=== PATIENT | male | born 1950 | race Caucasian/White ===

== ENCOUNTER 2016-12-17 16:44 | Emergency (ER) | payer BC, MEDICARE ==
[~2016-12-17] VITALS: Ht 195.6 cm; Wt 118.2 kg
[~2016-12-17 16:44] MED LIST: ASPI-611 PO; LOVA40TA70 PO; MULT-795 PO; OXYB5TAB73 PO; [UNRECOGNIZED DRUG - CODE] PO
[2016-12-17 16:50] VITALS: TEMP 98.8; Ht 195.6 cm; Wt 118.2 kg
--- NOTE | 2016-12-17 16:51 | NUR ---
PO MEDS ASA 324 MG GIVEN CHARTED W/ PT TOLERANCE NO CHANGE.
--- NOTE | 2016-12-17 17:14 | NUR ---
SL MED NTG GIVEN CHARTED W/ SOME RELIEF OF CHEST PAIN W/ PT TOLERANCE.
[2016-12-17] MEDS ORDERED: NITROGLYCERIN 0.4 MG SUBLINGUAL TABLET SL PRN (17:15)
[2016-12-17] MEDS ORDERED: ASPIRIN 81 MG CHEWABLE TABLET PO ONE (17:15)
--- NOTE | 2016-12-17 17:20 | NUR ---
SL MED NTG X2ND DOSE W/ FULL RELIEF OF CHEST PAIN CHARTED W/ PT TOLERANCE.
--- NOTE | 2016-12-17 17:21 | ERPDOC ---
Departure Disposition Decision Date: Dec 17, 2016 Disposition Decision Time: 18:37 Disposition: 01 DISCHARGED HOME, SELF-CARE Impression Impression Impression: Primary Impression: Atypical chest pain Severity: Moderate Condition: Improved Seen By: Mid-level only Referrals: EVANGELINA ARREOLA MD (Family) Patient Instructions: Chest Pain (ED), Gastroesophageal Reflux Disease (ED) Problems/Meds/Labs Reviewed?: Yes Medications reviewed and manag: Yes Additional Instructions: You labs and EKG did not show any indication of a heart attack. You may take Pepcid AC or Zantac twice daily. Follow with your PCP in the next week for re-evaluation, sooner if worsting symptoms. Follow treatment plan. Follow up care ordered?: Yes Mental Status: Alert, Oriented HPI - Chest Pain General Stated Complaint: CHEST PAIN & TIGHTNESS,HAND NUMBNESS Time Seen by Provider: 17:08 Source: patient HPI - Chest Pain Initial Comments 66-year-old male presents to ER with intermittent left-sided anterior chest pain since Friday. Patient states that "when pain comes on" he can swallow several times and pain goes away however he still has some tightness. Pain is not associated with nausea, or diaphoresis. Patient denies fever, chills, cough \\cold symptoms, abdominal pain or SOA. Patient does admit he has quite a bit of gas and has been a bit constipated. Pain is not associated with any activity. Patient is currently having no chest pain at this time (pain resolved with 2 nitro). Patient currently sees no map drafter. States that he saw a map drafter in [place] number of years ago and they thought he might have a "small heart murmur ". Pain/Severity Scale: Now: 0/10, Worst: 5/10 Location: anterior L Quality: tightness Associated Symptoms: DENIES: abdominal pain, back pain, diaphoresis, dizziness , edema, fatigue, fever/chills, headache, nausea/vomiting, rash, shortness of breath Chest Pain Radiation: no radiation Nitro Today/Relief: 0.4 mg x 2, complete relief Aspirin Treatment Today: 81 mg x 4, provided by ED Allergies: Coded Allergies: No Known Allergies (Unverified , 03/09/12) Past History Past Medical History Metabolic: hypercholesterolemia, hypertension Cardiac: DENIES: angina Respiratory: DENIES: asthma GI: DENIES: ulcers Male: BPH Neurological: DENIES: seizures Musculoskeletal: DENIES: rheumatoid arthritis Psychological: DENIES: depression Surgical History Joint: foot Family History Family PMH: FOUND: SC, cancer Vaccines Hx Influenza Vaccination: No Hx Pneumococcal Vaccination: No Hx Tetanus Diptheria: No Social History Sexuality: female partner Review of Systems Constitutional Constitutional: DENIES: chills, dizziness, fever, weakness Eyes General: DENIES: erythema, exudate Lids/Accessories: DENIES: erythema, swelling ENMT Ears: DENIES: pain Hearing: DENIES: hearing loss Sinuses: DENIES: congestion, rhinorrhea Mouth/Throat: DENIES: sore throat Cardiovascular Cardiac: chest pain, see HPI, DENIES: dyspnea on exertion Pulmonary Respiratory: DENIES: cough, dyspnea GI Upper Abdomen: DENIES: nausea, pain, vomiting Lower Abdomen: DENIES: diarrhea, pain General: DENIES: dysuria, pain Musculoskeletal General: DENIES: pain, tenderness Integumentary Skin: DENIES: color change, itching, rash Neurological General: DENIES: ataxia, change in strength, numbness, paralysis/paresis, weakness Psychiatric Psychiatric: DENIES: anxiety, depression, nervousness Physical Exam General General Nourishment: well nourished, well developed, adult General Body Habitus: well groomed Vitals and Pain First Documented Vital Signs Date Time Temp Pulse Resp B/P Pulse Ox O2 Delivery O2 Flow Rate FiO2 12/17/16 16:50 98.8 63 20 169/101 96 Room Air Weight: Kilograms: Height (feet): Height (inches): Triage Pain Scale: Eyes (brief) Eyes Brief: found: EOMI, PERRL ENMT Ear/Canal/Mastiod: NOT FOUND: discharge Tympanic Membrane #1: Location: Right Tympanic Membrane: FOUND Normal, NOT FOUND Erythema, NOT FOUND Fluid, NOT FOUND Retracted Tympanic Membrane #2: Location: Left Tympanic Membrane: FOUND Retracted, NOT FOUND Bulging, NOT FOUND Erythema, NOT FOUND Fluid Nose: NOT FOUND: deformity Mouth/Dental/Tongue: FOUND: mucosa moist Pharynx: NOT FOUND: displacement, edema, exudates, posterior drainage, uvular deviation Jaw: NOT FOUND: tenderness, trismus Neck (brief) Neck: FOUND: trachea midline, NOT FOUND: adenopathy, tenderness, thyromegaly Respiratory (brief) Respiratory: FOUND: clear all holliday, equal bilaterally, symmetrical Cardiovascular (brief) Cardiac: FOUND: regular rate, regular rhythm Cardiovascular Edema : Edema Site: bilateral Edema Location: leg Edema Degree: 0 Abdomen (brief) Abdominal Brief: FOUND: bowel normo active x4, soft, NOT FOUND: tender Musculoskeletal (brief) Musculoskeletal Brief: NOT FOUND: deformity, loss of motion Integumentary (brief) Integumentary Brief: FOUND: dry, pink, warm Neurologic (brief) Neurological Brief: FOUND: CN w/o gross def to obs, motor-no gross deficits, sensory-no gross deficits Psychiatric (brief) Psychiatric Brief: FOUND: alert, normal affect, oriented Differential Diagnoses Considering: Acute SC, Anxiety/Panic, Angina, Esophageal Spasm, GERD, Pleurisy , Pneumonia, Pulmonary Edema, Pulmonary Embolus, Other (Ulcer) Progress Results/Orders Orders Procedure Category Date Status Time Cbc W/Auto LAB 12/17/16 Complete Diff-Reflex Manual 17:06 Cmp - Comprehensive LAB 12/17/16 Complete Metabolic 17:06 Probnp LAB 12/17/16 Complete 17:06 Troponin I W LAB 12/17/16 Complete Hemolysis Index 17:06 INR LAB 12/17/16 Complete 17:06 EKG EKG 12/17/16 Taken 17:06 Chest 1 View RAD 12/17/16 Taken 17:06 Iv Lock (Ed Only) EDM 12/17/16 Transmitted 17:06 Aspirin (Asa) PHA 12/17/16 Complete 17:15 Nitroglycerin PHA 12/17/16 Complete (Nitrostat) 17:15 Lab Results Laboratory Tests Test 12/17/16 17:18 White Blood Count 6.5T/MM3 Red Blood Count 4.71M/MM3 Hemoglobin 13.6GM/DL Hematocrit 41.2% Mean Corpuscular Volume 87.5UM3 Mean Corpuscular Hemoglobin 28.9UUG Mean Corpuscular Hemoglobin Concent 33.0GM/DL RDW Standard Deviation 44.8FL Platelet Count 163T/MM3 Mean Platelet Volume 11.5UM3 Immature Granulocyte % (Auto) 0.2% Neutrophils (%) (Auto) 54.8% Lymphocytes (%) (Auto) 35.4% Monocytes (%) (Auto) 7.1% Eosinophils (%) (Auto) 2.0% Basophils (%) (Auto) 0.5% Absolute Immature Granulocyte (auto 0.01T/MM3 Absolute Neutrophils (auto) 3.6T/MM3 Absolute Lymphocytes (auto) 2.3T/MM3 Absolute Monocytes (auto) 0.5T/MM3 Absolute Eosinophils (auto) 0.1T/MM3 Absolute Basophils (auto) 0.0T/MM3 Prothromb Time International Ratio 0.99 Turbidity < 20 Sodium Level 143MEQ/L Potassium Level 3.8MEQ/L Chloride Level 109MEQ/L Carbon Dioxide Level 24MEQ/L Anion Gap 10MEQ/L Blood Urea Nitrogen 22.0MG/DL Creatinine 1.0MG/DL Glomerular Filtration Rate Calc 75 BUN/Creatinine Ratio 22RATIO Glucose Level 97MG/DL Calculated Osmolality 278MOSM/KG Calcium Level 9.8MG/DL Total Bilirubin 0.50MG/DL Icterus Index < 2 Aspartate Amino Transf (AST/SGOT) 34U/L Alanine Aminotransferase (ALT/SGPT) 38U/L Alkaline Phosphatase 78U/L Troponin I < 0.012ng/ml MP-Tzz-[id number]-Type Natriuretic Peptide 161PG/ML Total Protein 7.0G/DL Albumin 3.9G/DL Globulin 3.1G/DL Albumin/Globulin Ratio 1.3RATIO Chemistry Specimen Hemolysis < 15 Medications Current ED Medications Aspirin (ASA) 324 mg O ONCE PO ; Start 12/17/16 at 17:15; Stop 12/17/16 at 17: 16; Status DC Nitroglycerin (Nitrostat) 0.4 mg Q5MIN PRN SL CHEST PAIN; Start 12/17/16 at 17: 15; Stop 12/17/16 at 20:23; Status DC Progress Progress Patient reports that his pain has resolved after 2 nitro. CBC normal CMP unremarkable Troponin <0.012 ProBnp 161 CXR normal I discussed patient's labs and CXR with Dr. Prajapati. Patient has no elevation in troponin after 4 days of pain with unchanged EKG from previous. Dr. Prajapati feels chest pain is related to GERD/ulcer. I discussed labs, EKG and CXR with patient and family. I offered to call collections representative map drafter and discuss follow up. Patient said he will follow with his PCP and "go from there". EKG EKG : Rate: <60 (57) Rhythm: sinus Grass Range: left QRS: normal Intervals: normal ST/T: non-specific changes Interpreted by: signing physician (Dr. Prajapati) EKG Comments Unchanged from previous Xray Xray : Xray: CXR Portable (no acute cardiopulmonary findings (Dr. Prajapati)) RAMON SOLARES APRN Dec 17, 2016 17:21
--- NOTE | 2016-12-17 17:23 | NUR ---
PROVIDER NATHAN REYNA IN ROOM W/ PT.
[2016-12-17 17:29] LABS: BASOPHILS % (AUTO) 0.5 % (0-2); EOSINOPHILS # (AUTO) 0.1 T/MM3 (0-0.5); HCT - HEMATOCRIT 41.2 % (41-53); HGB - HEMOGLOBIN 13.6 GM/DL (13.5-17.5); IMMATURE GRANULOCYTE # (AUTO) 0.01 T/MM3 (0.00-0.03); IMMATURE GRANULOCYTE % (AUTO) 0.2 % (0.0-0.5); INR 0.99 (0.76-1.04); LYMPHOCYTES # (AUTO) 2.3 T/MM3 (1-4.8); LYMPHOCYTES % (AUTO) 35.4 % (23-45); MEAN CORPUSCULAR HGB 28.9 UUG (26-34); MEAN CORPUSCULAR VOLUME 87.5 UM3 (80-100); MEAN PLATELET VOLUME 11.5 UM3 (9.4-12.4); MONOCYTES # (AUTO) 0.5 T/MM3 (0-0.8); MONOCYTES % (AUTO) 7.1 % (0-9.0); NEUTROPHILS #(AUTO)-ABSOLUTE 3.6 T/MM3 (1.8-7.7); NEUTROPHILS % (AUTO) 54.8 % (33-66); PROTHROMBIN TIME 10.8 SEC (9.31-12.49); RED BLOOD COUNT 4.71 M/MM3 (4.50-5.90); WBC - WHITE BLOOD COUNT 6.5 T/MM3 (4.5-11.0)
[2016-12-17 17:34] LABS: ALBUMIN 3.9 G/DL (3.5-5.0); ALBUMIN/GLOBULIN RATIO 1.3 RATIO (1.1-2.2); ALKALINE PHOSPHATASE 78 U/L (38-126); ALT (SGPT) 38 U/L (21-72); ANION GAP 10 MEQ/L (5-15); AST (SGOT) 34 U/L (17-59); BUN/CREATININE RATIO 22 RATIO (6-26); CALCIUM 9.8 MG/DL (8.4-10.2); CHLORIDE 109 MEQ/L (98-107); CO2 - CARBON DIOXIDE 24 MEQ/L (22-30); GLOMERULAR FILTRATION RATE 75; GLUCOSE 97 MG/DL (75-110); POTASSIUM 3.8 MEQ/L (3.6-5); SODIUM 143 MEQ/L (134-144)
--- NOTE | 2016-12-17 17:35 | NUR ---
XRAY XRAY IN ROOM W/ PT PORATABLE CHEST.
[2016-12-17 17:42] LABS: PROBNP 161 PG/ML (0-175)
[2016-12-17 18:55] VITALS: BP 137/77; PULSE 49; RESP 18; O2SAT 97
--- NOTE | 2016-12-17 18:55 | NUR ---
DISCHARGE PT GIVEN INSTRUCTIONS FOR CONT CARE GERD, PT VERBALIZED UNDERSTANDING AND SIGNED FORM, PT LEFT ER AMBULATORY W/O ASSIST, ALERT, VS CHARTED, CONDITION IMPROVED AND CHEST PAIN FREE AND NO ACUTE DISTRESS.
--- NOTE | 2016-12-18 08:06 | DI ---
Indication: ITS.REASON: chest pain PROCEDURE: CHEST 1 VIEW: Encounter: Initial Comparison: March 08, 2012 Findings: The lungs are stable in appearance without new focal airspace consolidation. There is no pleural effusion or pneumothorax. The heart size, pulmonary vascularity and mediastinal contours are unchanged. IMPRESSION: Stable appearance of the chest without acute cardiopulmonary disease. .
== END 2016-12-17 18:55 | disposition home or self-care (01) ==
LOC: ED 16:44
DX: R07.89 Other chest pain (principal); R14.3 Flatulence
CPT/HCPCS: 80053; 83880; 84484; 85025; 85610; 93005